=== PATIENT | male | born 1990 | race Caucasian/White ===

== ENCOUNTER 2017-02-27 09:15 | Emergency (ER) | payer OTHER ==
--- NOTE | 2017-02-27 10:10 | RAD ---
PA AND LATERAL VIEWS OF CHEST: Date: 02/27/17 HISTORY: Chest pain, left shoulder pain. FINDINGS: Comparison made with exam of 01/26/17. The heart size is normal. The lungs are well expanded without focal areas of consolidation, pneumoth orax, or pleural effusions. Postop changes of metallic hardware in the sternum are redemonstrated. IMPRESSION: Stable exam. No radiographic evidence of acute cardiopulmonary process. POS: [facility]
== END 2017-02-27 10:33 | disposition home or self-care (01) ==
LOC: ERS 09:15
DX: S46.812A Strain of other muscles, fascia and tendons at shoulder and upper arm level, left arm, initial encounter (principal); Z79.899 Other long term (current) drug therapy
CPT/HCPCS: 71020; 93005

== ENCOUNTER 2019-08-30 01:24 | Emergency (ER) | payer BC, SELFPAY ==
[2019-08-30] MEDS ORDERED: Ketorolac Tromethamine 30 MG/ML VIAL ONE (01:32)
--- NOTE | 2019-08-30 07:15 | RAD ---
2 VIEWS CHEST: Date: 08/30/2019 COMPARISON: 01/28/2019. HISTORY: Chest pain. FINDINGS: Two views of the chest show normal sized cardiomediastinal silhouette. The patient is status post reji rnotomy. There is no evidence of consolidation, mass, or pleural effusion. IMPRESSION: No evidence of acute cardiopulmonary disease. POS: [facility]
== END 2019-08-30 02:55 | disposition home or self-care (01) ==
LOC: ERS 01:24
DX: R07.89 Other chest pain (principal); F17.290 Nicotine dependence, other tobacco product, uncomplicated; F41.9 Anxiety disorder, unspecified; Z79.899 Other long term (current) drug therapy
CPT/HCPCS: 71046; 93005; 96374; J1885

== ENCOUNTER 2020-07-05 07:32 | Emergency (ER) | payer BC, SELFPAY ==
[2020-07-05] MEDS ORDERED: Ondansetron ODT 4 MG TAB ONE (08:06)
[2020-07-05] MEDS ORDERED: Morphine 4 MG/ML VIAL ONE (08:13)
[2020-07-05 09:12] LABS: #Eosinphils 0.1 thou/uL (0.0-0.7); #Lymphocytes 1.5 thou/uL (1.20-3.40); #Monocytes 0.6 thou/uL (0.11-0.59); #Neutrophils 4.7 thou/uL (1.40-6.50); %Basophils 0.5 % (0.0-1.0); %Eosinophils 1.3 % (0.0-10.0); %Lymphocytes 22.1 % (21.0-51.0); %Monocytes 8.5 % (0.0-10.0); %Neutrophils 67.7 % (42.0-75.0); Hemoglobin 12.5 g/dL (14.0-18.0); Mean Corpuscular HGB CONC 34.2 g/dL (32.0-36.0); Mean Corpuscular Hemoglobin 32.5 pg (27.0-31.0); Mean Platelet Volume 7.5 fL (7.4-10.4); Platelet Count 223 thou/uL (130-400); RBC Distribution Width 10.6 % (11.5-14.5); Red Blood Cell (RBC) Count 3.85 mill/uL (4.70-6.10); White Blood Cell (WBC) Count 6.9 thou/uL (4.8-10.8)
--- NOTE | 2020-07-06 18:05 | CON ---
DATE OF CONSULTATION: 07/05/2020 REASON FOR CONSULTATION: Penile swelling. HISTORY OF PRESENT ILLNESS: Mr. Cannon is a 30-year-old gentleman who was transferred here from [facility]. He presents with a history of right-sided penile swelling that he noticed in the middle of the night approximately 2 to 3 a.m. on 07/05/2020. He was having a little bit of discomfort and got up to urinate when he noticed the swelling. He had no trouble urinating and has had no trouble urinating since. He denies any trauma. He had not been sexually active in any way in the recent past. He denies any trauma. He was seen in the [facility] and a needle was placed in the penis and 10 mL of blood were aspirated. He has been transferred to [facility] for further evaluation. PAST MEDICAL HISTORY: Consistent with pectus excavatum, status post repair; gastroesophageal reflux disease; reactive airway disease. PAST SURGICAL HISTORY: Repair of pectus excavatum. CHRONIC MEDICATIONS: 1. Albuterol inhaler. 2. Celebrex. 3. Lexapro. 4. Neurontin. 5. Protonix. ALLERGIES: PENICILLIN, CYMBALTA. SOCIAL HISTORY: He does not smoke, use alcohol, or use drugs. FAMILY HISTORY: Heart disease in his paternal grandfather. No history of sickle cell disease. REVIEW OF SYSTEMS: RESPIRATORY: Denies any shortness of breath at this time. Does have a history of reactive airway disease. CARDIOTHORACIC: Denies any atypical chest pain. He does have chronic chest related pain from a history of pectus excavatum. GASTROINTESTINAL: Denies any chronic constipation or diarrhea. GENITOURINARY: Please see history of present illness. NEUROLOGIC: Denies any symptoms consistent with a stroke. PHYSICAL EXAMINATION: GENERAL: He is awake, alert. He is in no distress. HEENT: Normocephalic, atraumatic. NECK: Supple without masses. CHEST: Clear to auscultation. CARDIOVASCULAR: No murmurs auscultated. ABDOMEN: Soft, nontender. No palpable masses. Liver and spleen are not palpable. No abdominal tenderness. : Penis is ecchymotic and has "eggplant" appearance. SKIN: There is no tenderness. No break in the skin. No rigidity of the cavernosa. IMPRESSION: Clinical findings consistent with penile fracture, although no history to suggest penile fracture. He denies any sexual activity of any type. At the time this occurred, seemed to be spontaneous in nature. He is having no voiding symptoms and the pain is described as discomfort and quite manageable. We discussed management options, which include expiration, clot evacuation, possible repair, fracture, or conservative management with compression dressings. He has opted on this approach with the understanding that if things worsen or develops any new symptoms, he will notify our office. RECOMMENDATIONS: No surgical intervention at this time. Job ID: [id number]
== END 2020-07-05 09:38 | disposition home or self-care (01) ==
LOC: ERS 07:32
DX: S39.840A Fracture of corpus cavernosum penis, initial encounter (principal); K21.9 Gastro-esophageal reflux disease without esophagitis; F17.290 Nicotine dependence, other tobacco product, uncomplicated; Z79.899 Other long term (current) drug therapy
CPT/HCPCS: 36415; 85025; 96374; J2270; Q0162

== ENCOUNTER 2021-06-27 03:11 | Emergency (ER) | payer BC ==
[2021-06-27] MEDS ORDERED: Ketorolac Tromethamine 30 MG/ML VIAL ONE (04:12)
[2021-06-27 04:41] LABS: #Eosinphils 0.1 thou/uL (0.0-0.7); #Monocytes 0.5 thou/uL (0.11-0.59); #Neutrophils 2.7 thou/uL (1.40-6.50); %Basophils 0.5 % (0.0-1.0); %Eosinophils 1.3 % (0.0-10.0); %Lymphocytes 38.2 % (21.0-51.0); %Monocytes 9.7 % (0.0-10.0); %Neutrophils 50.3 % (42.0-75.0); Hemoglobin 14.1 g/dL (14.0-18.0); Mean Corpuscular HGB CONC 34.9 g/dL (32.0-36.0); Mean Corpuscular Hemoglobin 33.9 pg (27.0-31.0); Mean Corpuscular Volume 97.1 fL (78.0-98.0); Mean Platelet Volume 7.3 fL (7.4-10.4); Platelet Count 225 thou/uL (130-400); Red Blood Cell (RBC) Count 4.17 mill/uL (4.70-6.10); White Blood Cell (WBC) Count 5.3 thou/uL (4.8-10.8)
[2021-06-27 04:51] LABS: ALT (SGPT) 10 U/L (8-55); AST (SGOT) 13 U/L (5-34); Albumin 4.2 g/dL (3.5-5.0); Alkaline Phosphatase 44 U/L (40-110); Anion Gap 9 mmol/L (10-20); BUN (Urea Nitrogen) 20 mg/dL (8.9-20.6); Bilirubin, Total 0.6 mg/dL (0.2-1.2); Calc. Creatinine Clearance 0 mL/min (70-130); Calcium 9.3 mg/dL (7.8-10.44); Carbon Dioxide 29 mmol/L (22-29); Chloride 108 mmol/L (98-107); Globulin 2.3 g/dL (2.4-3.5); Glucose 97 mg/dL (70-105); Potassium 3.9 mmol/L (3.5-5.1); Protein, Total 6.5 g/dL (6.0-8.3); Sodium 142 mmol/L (136-145)
== END 2021-06-27 05:15 | disposition home or self-care (01) ==
LOC: ERS 03:11
DX: R07.2 Precordial pain (principal); R06.02 Shortness of breath; K21.9 Gastro-esophageal reflux disease without esophagitis; F17.290 Nicotine dependence, other tobacco product, uncomplicated; Z79.899 Other long term (current) drug therapy
CPT/HCPCS: 36415; 71045; 80053; 84484; 85025; 93005; 96374; J1885

== ENCOUNTER 2021-12-12 00:49 | Day surgery (SDC) | payer BC, SELFPAY ==
[2021-12-12 01:27] LABS: #Lymphocytes 1.3 thou/uL (1.20-3.40); #Monocytes 1.6 thou/uL (0.11-0.59); #Neutrophils 12.4 thou/uL (1.40-6.50); %Eosinophils 0.1 % (0.0-10.0); %Lymphocytes 8.2 % (21.0-51.0); %Monocytes 10.4 % (0.0-10.0); %Neutrophils 81.4 % (42.0-75.0); Mean Corpuscular HGB CONC 34.6 g/dL (32.0-36.0); Mean Corpuscular Hemoglobin 33.3 pg (27.0-31.0); Mean Corpuscular Volume 96.2 fL (78.0-98.0); Mean Platelet Volume 7.4 fL (7.4-10.4); Platelet Count 239 thou/uL (130-400); RBC Distribution Width 11.3 % (11.5-14.5); Red Blood Cell (RBC) Count 4.22 mill/uL (4.70-6.10); White Blood Cell (WBC) Count 15.3 thou/uL (4.8-10.8)
[2021-12-12] MEDS ORDERED: Morphine 4 MG/ML VIAL ONE ×3 (01:45→09:00)
[2021-12-12] MEDS ORDERED: Ondansetron PF 4 MG/2 ML Vial ONE ×2 (01:45→12:57)
[2021-12-12 02:48] LABS: ALT (SGPT) 12 U/L (8-55); AST (SGOT) 15 U/L (5-34); Albumin 4.4 g/dL (3.5-5.0); Alkaline Phosphatase 54 U/L (40-110); Anion Gap 14 mmol/L (10-20); BUN (Urea Nitrogen) 22 mg/dL (8.9-20.6); Calc. Creatinine Clearance 0 mL/min (70-130); Calcium 9.8 mg/dL (7.8-10.44); Carbon Dioxide 26 mmol/L (22-29); Chloride 103 mmol/L (98-107); Estimated GFR 119; Globulin 2.8 g/dL (2.4-3.5); Glucose 137 mg/dL (70-105); Lipase 5 U/L (8-78); Potassium 3.9 mmol/L (3.5-5.1); Protein, Total 7.2 g/dL (6.0-8.3); Sodium 139 mmol/L (136-145)
[2021-12-12] MEDS ORDERED: metroNIDAZOLE 500 MG/100 ML BAG ONE ×2 (05:37→06:14)
[2021-12-12 07:01] LABS: SARS-CoV-2 NAA Rapid Test Not Detected (NotDetected)
[2021-12-12] MEDS ORDERED: Sodium Chloride 0.9% 1,000 ML IV SCH (09:45)
[2021-12-12] MEDS ORDERED: Sodium Chloride 0.9% 500 ML IV SCH (09:45)
[2021-12-12] MEDS ORDERED: Clindamycin/D5W 600 MG in Premix Bag 1 BAG IVPB SCH (12:00)
[2021-12-12] MEDS ORDERED: fentaNYL Citrate/PF 100 MCG/2 ML SYRINGE ONE (12:36)
[2021-12-12] MEDS ORDERED: Dexmedetomidine 200 MCG/2 ML VIAL ONE (12:37)
[2021-12-12] MEDS ORDERED: Bupivacaine/Epinephrine 0.25% 30 ML VIAL ONE (12:39)
[2021-12-12] MEDS ORDERED: Clindamycin/D5W 600 mg/50 ml Premix Bag ONE (12:49)
[2021-12-12] MEDS ORDERED: Succinylcholine 200 MG/10 ml SYRINGE FS ONE (12:57)
[2021-12-12] MEDS ORDERED: Ketorolac Tromethamine 30 MG/ML VIAL ONE (12:57)
[2021-12-12] MEDS ORDERED: Rocuronium Bromide 10 MG/ML (10ML VIAL) ONE (12:57)
[2021-12-12] MEDS ORDERED: PROPOFOL 200 MG/20 ML VIAL ONE (12:57)
[2021-12-12] MEDS ORDERED: Glycopyrrolate 0.2 MG/ML 5 ML SYRINGE ONE (12:57)
[2021-12-12] MEDS ORDERED: Fentanyl 100 MCG/2 ML VIAL ONE (13:51)
[2021-12-12] MEDS ORDERED: HYDROcodone/Acetaminophen 5/325 mg Tablet ONE (15:31)
[2021-12-12] MEDS ORDERED: GASTROGRAFIN 30 ML BOT ONE (15:53)
[2021-12-12] MEDS ORDERED: Iopamidol 370 76% 100 ML VIAL ONE (15:53)
== END 2021-12-12 17:01 | disposition home or self-care (01) ==
LOC: ERS 00:49 → SDC 11:33
PROVIDERS: ATTEND Surgery
PROC: 0DTJ4ZZ Resection of Appendix, Percutaneous Endoscopic Approach (ICD-10-PCS; principal; 2021-12-12)
DX: K35.80 Unspecified acute appendicitis (principal); F17.290 Nicotine dependence, other tobacco product, uncomplicated; Z79.899 Other long term (current) drug therapy; Z88.0 Allergy status to penicillin; Z20.822 Contact with and (suspected) exposure to COVID-19
CPT/HCPCS: 36415; 74177; 80053; 83605; 83690; 85025; 88304; A4649; J1885; J1956; J2270; J2405; J2704; J2710; J3010; J3490; Q9963; Q9967; U0002